=== PATIENT | female | born 1945 | race Caucasian/White ===

== ENCOUNTER 2017-01-28 11:34 | Inpatient (IN) | payer OTHER ==
--- NOTE | 2017-01-28 12:02 | PDOC ---
History of Present Illness - General Chief Complaint: Injury Stated Complaint: FALL Time Seen by Provider: 01/28/17 12:01 - History of Present Illness Initial Comments: 01/28/17 12:39 Ms. Tubbs is a 71 yo female with a significant past medical history of hypothyroidism who presents to the emergency department following a mechanical fall this morning. She reports she was walking down a hill when she tripped and fell, landing on her left side. She reported minimal pain at presentation and declined narcotics. The patient denies chest pain, shortness of breath, headache and dizziness. Denies fever, chills, nausea, vomit, diarrhea and constipation. Denies dysuria, frequency, urgency and hematuria. Allergies: Seasonal Past surgical history: Denies Social history: Denies Past History - Past Medical History Allergies/Adverse Reactions: Allergies Allergy/AdvReac Type Severity Reaction Status Date / Time No Known Allergies Allergy Verified 01/28/17 14:41 Home Medications: Ambulatory Orders Aspirin [ASA -] 81 mg PO DAILY 01/28/17 Levothyroxine [Synthroid -] 50 mcg PO DAILY 01/28/17 Rosuvastatin Calcium [Crestor] 20 mg PO HS 01/28/17 Hypercholesterolemia: Yes Thyroid Disease: Yes (HYPO) - Suicide/Smoking/Psychosocial Hx Smoking History: Never smoked Have you smoked in the past 12 months: No Information on smoking cessation initiated: No Hx Alcohol Use: No Drug/Substance Use Hx: No Substance Use Type: None Review of Systems - Review of Systems Comments:: 01/28/17 12:39 GENERAL/CONSTITUTIONAL: No fever or chills. No weakness. HEAD, EYES, EARS, NOSE AND THROAT: No change in vision. No ear pain or discharge. No sore throat. CARDIOVASCULAR: No chest pain or shortness of breath RESPIRATORY: No cough, wheezing, or hemoptysis. GASTROINTESTINAL: No nausea, vomiting, diarrhea or constipation. GENITOURINARY: No dysuria, frequency, or change in urination. MUSCULOSKELETAL: +Left mid leg pain reported. No neck or back pain. SKIN: No rash NEUROLOGIC: No headache, vertigo, loss of consciousness, or change in strength/ sensation. ENDOCRINE: No increased thirst. No abnormal weight change HEMATOLOGIC/LYMPHATIC: No anemia, easy bleeding, or history of blood clots. ALLERGIC/IMMUNOLOGIC: No hives or skin allergy. *Physical Exam - Vital Signs Last Vital Signs Temp Pulse Resp BP Pulse Ox 98.1 F 70 17 150/95 97 01/28/17 11:50 01/28/17 11:50 01/28/17 11:50 01/28/17 11:50 01/28/17 11:50 - Physical Exam Comments: 01/28/17 12:39 GENERAL: Awake, alert, and fully oriented, in no acute distress HEAD: No signs of trauma, normocephalic, atraumatic EYES: PERRLA, EOMI, sclera anicteric, conjunctiva clear ENT: Auricles normal inspection, hearing grossly normal, nares patent, oropharynx clear without exudates. Moist mucosa NECK: Normal ROM, supple, no lymphadenopathy, JVD, or masses LUNGS: No distress, speaks full sentences, clear to auscultation bilaterally HEART: Regular rate and rhythm, normal S1 and S2, no murmurs, rubs or gallops, peripheral pulses normal and equal bilaterally. ABDOMEN: Soft, nontender, normoactive bowel sounds. No guarding, no rebound. No masses EXTREMITIES: +Left extremity shorter than Right without abnormal rotation. Decrease in Left plantar flexion strength noted. Some swelling on left femur appreciated. No clubbing or cyanosis. NEUROLOGICAL: Cranial nerves II through XII grossly intact. Normal speech, normal gait, no focal sensorimotor deficits SKIN: Warm, Dry, normal turgor, no rashes or lesions noted. ED Treatment Course - LABORATORY CBC & Chemistry Diagram: 01/28/17 12:56 01/28/17 13:40 Medical Decision Making - Medical Decision Making 01/28/17 14:06 90% displaced femur fracture noted on x-ray. Ortho consulted [id number]. 01/28/17 14:46 Ortho spoken to, aware of patient. They will not do surgery today but will see the patient later this afternoon. Will admit patient for overnight care. *DC/Admit/Observation/Transfer Diagnosis at time of Disposition: Femur fracture, left Qualifiers: Encounter type: initial encounter Femur location: shaft Fracture type: closed Fracture morphology: unspecified fracture morphology Qualified Code(s): S72.302A - Unspecified fracture of shaft of left femur, initial encounter for closed fracture - Discharge Dispostion Admit: Yes - Referrals Referrals: Horacio Sheppard MD [Primary Care Provider] -
[2017-01-28] MEDS ORDERED: ONDANSETRON 4 MG/2 ML VIAL IVPUSH ONE (12:31)
[2017-01-28] MEDS ORDERED: morphine CARPU-JECT 2 MG/1 ML DISP.SYRIN IVPUSH ONE (12:31)
[2017-01-28] MEDS ORDERED: morphine CARPU-JECT 4 MG/1 ML DISP.SYRIN IVPUSH ONE (13:52)
[2017-01-28 14:13] LABS: BASOPHIL 0.3 % (0-2.0); EOSINOPHIL 0.5 % (0-4.5); MCH 30.8 pg (25.7-33.7); MCHC 33.4 g/dl (32.0-36.0); MEAN CELL VOLUME 92.3 fl (80-96); MEAN PLT VOLUME 10.5 fl (7.5-11.1); NEUTROPHILS 74.6 % (42.8-82.8); PLATELET COUNT 176 K/MM3 (134-434); RDW 12.8 % (11.6-15.6); WHITE BLOOD COUNT 10.7 K/mm3 (4.0-10.0)
[2017-01-28 14:20] LABS: ANION GAP 8 (8-16); CALCIUM 8.9 mg/dL (8.5-10.1); CO2 28 mmol/L (21-32); CREATININE 0.6 mg/dL (0.55-1.02); GLUCOSE,RANDOM 112 mg/dL (74-106)
[2017-01-28] MEDS ORDERED: HYDROmorphone HCL CARPU-JECT 1 MG/1 ML DISP.SYRIN IVPB ONE (16:28)
[2017-01-28] MEDS ORDERED: HYDROmorphone HCL CARPU-JECT 1 MG/1 ML DISP.SYRIN ONE (16:50)
--- NOTE | 2017-01-28 17:21 | CON.ORTH ---
Consult Reason for Consultation:: left femur fx - Alcohol/Substance Use Hx Alcohol Use: No - Smoking History Smoking history: Never smoked Have you smoked in the past 12 months: No Home Medications - Allergies Allergies/Adverse Reactions: Allergies Allergy/AdvReac Type Severity Reaction Status Date / Time No Known Allergies Allergy Verified 01/28/17 14:41 - Home Medications Home Medications: Ambulatory Orders Aspirin [ASA -] 81 mg PO DAILY 01/28/17 Levothyroxine [Synthroid -] 50 mcg PO DAILY 01/28/17 Rosuvastatin Calcium [Crestor] 20 mg PO HS 01/28/17 Physical Exam for Ortho Vital Signs: Vital Signs Temperature 98.1 F 01/28/17 11:50 Pulse Rate 70 01/28/17 11:50 Respiratory Rate 17 01/28/17 11:50 Blood Pressure 150/95 01/28/17 11:50 O2 Sat by Pulse Oximetry (%) 100 01/28/17 13:25 - Lower Extremity Hip: Yes: Left Leg: Yes: Left, Deformity, Limited ROM, Pain, Swelling, Tenderness, Other (nvi) Imaging - Results X-ray: Report Reviewed, Image Reviewed Assessment/Plan 71 yo female with a significant past medical history of hypothyroidism who presents to the emergency department following a mechanical fall this morning. She reports she was walking down a hill when she tripped and fell, landing on her left side. She reported minimal pain at presentation and declined narcotics. a/p left displaced femoral shaft fx Risks and benefits were d/w pt and family in detail Will need left femur retrograde nail OR for tomorrow afternoon surgical clearance NPO after midnight d/w Dr. Chang
[2017-01-28 17:26] VITALS: BMI 25.5
--- NOTE | 2017-01-28 20:22 | HP ---
Admitting History and Physical - Primary Care Physician PCP: Malorie Balderrama - Admission Chief Complaint: fall History of Present Illness: 71 yo female with a significant past medical history of hypothyroidism who presents to the emergency department following a mechanical fall this morning. She reports she was walking down a hill when she tripped and fell, landing on her left side, did not hit head or loose conciousness.no syncope - Past Medical History Endocrine: Yes: Hypothyroidism - Smoking History Smoking history: Never smoked Have you smoked in the past 12 months: No - Alcohol/Substance Use Hx Alcohol Use: No Home Medications - Allergies Allergies/Adverse Reactions: Allergies Allergy/AdvReac Type Severity Reaction Status Date / Time No Known Allergies Allergy Verified 01/28/17 14:41 - Home Medications Home Medications: Ambulatory Orders Aspirin [ASA -] 81 mg PO DAILY 01/28/17 Levothyroxine [Synthroid -] 50 mcg PO DAILY 01/28/17 Rosuvastatin Calcium [Crestor] 20 mg PO HS 01/28/17 Physical Examination Vital Signs: Vital Signs Temperature 98.1 F 01/28/17 11:50 Pulse Rate 64 01/28/17 17:30 Respiratory Rate 18 01/28/17 17:30 Blood Pressure 136/68 01/28/17 17:30 O2 Sat by Pulse Oximetry (%) 100 01/28/17 17:30 Constitutional: Yes: No Distress HENT: Yes: Atraumatic Neck: Yes: Supple Cardiovascular: Yes: Regular Rate and Rhythm Respiratory: Yes: CTA Bilaterally Gastrointestinal: Yes: Normal Bowel Sounds Extremities: Yes: WNL Edema: No Peripheral Pulses WNL: No Neurological: Yes: Alert, Oriented Imaging - Results Cat Scan: Report Reviewed, Image Reviewed Problem List - Problems (1) Femur fracture, left Assessment/Plan: FOR SURGERY TOMORROW\WILL GET CARDIOLOGY CLEARANCE ECHO Code(s): S72.92XA - UNSP FRACTURE OF LEFT FEMUR, INIT ENCNTR FOR CLOSED FRACTURE Qualifiers: Encounter type: initial encounter Femur location: shaft Fracture type: closed Fracture morphology: unspecified fracture morphology Qualified Code(s): S72.302A - Unspecified fracture of shaft of left femur, initial encounter for closed fracture (2) Fall Assessment/Plan: PT TRIPPED AND FELL NO DIZZINESS Code(s): W19.XXXA - UNSPECIFIED FALL, INITIAL ENCOUNTER Assessment/Plan Laboratory Tests 01/28/17 01/28/17 12:56 13:40 WBC 10.7 H RBC 4.33 Hgb 13.3 Hct 39.9 MCV 92.3 MCH 30.8 MCHC 33.4 RDW 12.8 Plt Count 176 MPV 10.5 Neutrophils % 74.6 Lymphocytes % 18.1 Monocytes % 6.5 Eosinophils % 0.5 Basophils % 0.3 Sodium 140 Potassium 3.9 Chloride 104 Carbon Dioxide 28 Anion Gap 8 BUN 21 H Creatinine 0.6 Random Glucose 112 H Calcium 8.9 Active Medications Generic Name Dose Route Start Last Admin Trade Name Freq PRN Reason Stop Dose Admin Hydromorphone HCl 1 mg 01/28/17 20:30 Dilaudid Injection - IVPB Q3H PRN PAIN Hydromorphone HCl 2 mg 01/28/17 20:31 Dilaudid Injection - IVPB Q4H PRN PAIN
[2017-01-28] MEDS ORDERED: HYDROmorphone HCL CARPU-JECT 1 MG/1 ML DISP.SYRIN IVPB PRN (20:30)
[2017-01-28] MEDS ORDERED: ROSUVASTATIN CA 10 MG TABLET (FP) ONE (21:04)
[2017-01-28] MEDS ORDERED: ROSUVASTATIN CA 20 MG TABLET (FP) PO SCH (22:00)
[2017-01-28] MEDS: HYDROmorphone HCL CARPU-JECT 2 MG/1 ML DISP.SYRIN IVPB PRN (23:42)
[2017-01-29] MEDS: HYDROmorphone HCL CARPU-JECT 2 MG/1 ML DISP.SYRIN IVPB PRN ×3 (04:51→13:37)
[2017-01-29] MEDS ORDERED: LEVOTHYROXINE NA 50 MCG TABLET (FP) PO SCH (07:00)
[2017-01-29 07:12] LABS: BASOPHIL 0.3 % (0-2.0); EOSINOPHIL 0.2 % (0-4.5); MCH 30.9 pg (25.7-33.7); MCHC 33.4 g/dl (32.0-36.0); MEAN CELL VOLUME 92.5 fl (80-96); MEAN PLT VOLUME 10.7 fl (7.5-11.1); NEUTROPHILS 72.2 % (42.8-82.8); PLATELET COUNT 162 K/MM3 (134-434); RDW 12.6 % (11.6-15.6); WHITE BLOOD COUNT 9.5 K/mm3 (4.0-10.0)
[2017-01-29 08:59] LABS: ALBUMIN 3.2 g/dl (3.4-5.0); ANION GAP 7 (8-16); CALCIUM 8.2 mg/dL (8.5-10.1); CO2 25 mmol/L (21-32); CREATININE 0.6 mg/dL (0.55-1.02); GLUCOSE,RANDOM 108 mg/dL (74-106); SGOT/AST 20 U/L (15-37); SGPT/ALT 26 U/L (12-78)
[2017-01-29 09:01] LABS: ALK PHOS 51 U/L (45-117); BILIRUBIN,TOTAL 0.9 mg/dL (0.2-1.0); TOT PROT 6.6 g/dl (6.4-8.2)
--- NOTE | 2017-01-29 09:19 | PN ---
Progress Note (short form) - Note Progress Note: Chief Complaint: Events noted, notes reviewed, complaining of left hip discomfort, denies any chest pain or dyspnea History of Present Illness: Seen and examined. Full consult dictated Echocardiography reviewed at the bedside which revealed normal LV function, MAC , AV sclerosis/calcification with no , no significant valvular regurgitation - Current Medication List Current Medications Hydromorphone HCl (Dilaudid Injection -) 1 mg IVPB Q3H PRN PRN Reason: PAIN Last Admin: 01/28/17 20:41 Dose: 1 mg Hydromorphone HCl (Dilaudid Injection -) 2 mg IVPB Q4H PRN PRN Reason: PAIN Last Admin: 01/29/17 04:51 Dose: 2 mg Levothyroxine Sodium (Synthroid -) 50 mcg PO DAILY@0700 [facility] Last Admin: 01/29/17 06:54 Dose: 50 mcg Rosuvastatin Calcium (Crestor -) 20 mg PO HS [facility] Last Admin: 01/28/17 21:16 Dose: 20 mg Review of Systems - Review of Systems Constitutional: no symptoms reported Respiratory: denies: Cough or Sputum Production Cardiovascular: as noted above Gastrointestinal: denies Nausea, Vomiting, Diarrhea, Constipation or Abdominal Pain Genitourinary: No symptoms reported Musculoskeletal: As noted above Endocrine: No symptoms reported - Objective Vital Signs: Last Vital Signs Temp Pulse Resp BP Pulse Ox 98 F 76 18 106/61 95 01/29/17 09:18 01/29/17 09:18 01/29/17 09:18 01/29/17 09:18 01/28/17 22:00 Intake & Output 01/26/17 01/27/17 01/28/17 01/29/17 23:59 23:59 23:59 23:59 Intake Total 150 0 Balance 150 0 Weight 149 lb Constitutional: No Distress, Calm Neck: Supple Negative JVD Cardiovascular: S1 S2 Regular Rate and Rhythm, Grade 1/6 Systolic Ejection Murmur Respiratory: clear to A&P Gastrointestinal: Soft, Benign Normal Bowel Sounds Ext: No Edema Labs: CBC, BMP 01/29/17 06:10 01/29/17 06:25 Assessment/Plan ASSESSMENT: 1. Pre-operative cardiovascular evaluation, mechanical fall with fracture hip for operative repair 2. Hypercholesterolemia 3. Carotid atherosclerosis, asymptomatic 4. Hypothyroidism 5. Heart murmur related to AV sclerosis, no stenosis PLAN: 1. There are no absolute contraindications in proceeding with planned urgent surgical intervention considering that there is no clinical evidence of ACS and/ or de-compensated congestive heart failure and/or malignant ventricular arrhythmia 2. DVT prophylaxis 3. Continue Crestor 4. Continue ASA unless it is contraindicated Devang Grayson M.D.
--- NOTE | 2017-01-29 13:37 | EKG ---
Test Reason : Blood Pressure : / mmHG Vent. Rate : 074 BPM Atrial Rate : 074 BPM P-R Int : 150 ms QRS Dur : 082 ms QT Int : 428 ms P-R-T Axes : 048 -22 -01 degrees QTc Int : 475 ms NORMAL SINUS RHYTHM NORMAL ECG NO PREVIOUS ECGS AVAILABLE BASELINE ARTIFACT REPEAT EKG IF CLINICALLY INDICATED Confirmed by SOLEDAD RICHARDSON MD ([id number]) on 01/29/2017 1:37:03 PM Referred By: Confirmed By:SOLEDAD RICHARDSON MD
[2017-01-29] MEDS ORDERED: ROPIVACAINE HCL 0.5% 30ML VIAL ONE (14:44)
[2017-01-29] MEDS ORDERED: BUPIVACAINE HCL/PF 0.5% (5MG/ML) 10 ML VIAL ONE (14:44)
[2017-01-29] MEDS ORDERED: DEXAMETHASONE SOD PHOSPHATE/PF 10 MG/ML SDV ONE (14:44)
[2017-01-29] MEDS ORDERED: MIDAZOLAM HCL 2 MG/2 ML SINGLE DOSE VIAL ONE (14:45)
--- NOTE | 2017-01-29 14:56 | CONS ---
DATE OF CONSULTATION: DATE OF DICTATION: 01/29/2017 REQUESTING PHYSICIAN: Malorie Balderrama MD CHIEF COMPLAINT: Fall, left hip fracture, preoperative cardiovascular evaluation. HISTORY OF PRESENT ILLNESS: A 71-year-old female with known history of hypercholesterolemia on statin therapy; carotid atherosclerosis, asymptomatic; hypothyroidism; who denied any history of hypertension, diabetes mellitus; who presented to [facility] after sustaining a mechanical fall with left hip trauma and was noted to have evidence of a fracture; for which, surgical intervention is planned later today. Patient denied any syncope prior to the above event. Patient does not report any prior history of coronary artery disease, angina pectoris, or congestive heart failure. Patient denies any chest discomfort. Patient denies any dyspnea, orthopnea, paroxysmal nocturnal dyspnea, or peripheral edema. Patient denies any palpitations, dizziness, lightheadedness, or syncope. PAST MEDICAL HISTORY: Hypercholesterolemia; carotid atherosclerosis, asymptomatic; hypothyroidism. SOCIAL HISTORY: Nonsmoker. FAMILY HISTORY: Positive coronary artery disease. ALLERGIES: None reported. MEDICAL THERAPY AT HOME: Included Crestor 20 mg once a day, Ecotrin 81 mg once a day, Synthroid 50 mcg once a day. REVIEW OF SYSTEMS: Head and Neck: Denies headache, photophobia, or blurring of vision. Respiratory: No cough or sputum production. Cardiovascular: As noted above. Gastrointestinal: Denies nausea, vomiting, diarrhea, abdominal discomfort. Genitourinary: No symptoms reported. Musculoskeletal: Left hip discomfort. PHYSICAL EXAMINATION: Vital Signs: Blood pressure is 106/61 mmHg, pulse rate of 76 beats per minute. Head and Neck: Pupils equal and reactive to light and accommodation. Extraocular muscles are intact. Anicteric sclerae. Negative JVD. No bruit appreciated. Chest: Clear to auscultation and percussion. Cardiovascular: S1, S2. Regular. Grade 1/6 systolic ejection murmur. No clicks or gallops. Abdomen: Soft, benign. Normoactive bowel sounds. Extremities: Negative edema. Intact distal pulses. No calf tenderness. DIAGNOSTIC DATA: Electrocardiogram reveals baseline artifact, sinus rhythm, with nonspecific T-wave abnormality. No prior EKG available for comparison. Chest x-ray report was noted. No acute pathology noted. CBC revealed white cell count of 9.5, hemoglobin 12.3, platelet count 162. Basic metabolic profile revealed sodium 139, potassium 4.2, BUN 21, creatinine 0.6, glucose 108, with normal liver profile. ASSESSMENT: 1. Preoperative cardiovascular evaluation prior to proceeding with left hip operative intervention, post mechanical fall, fracture of hip. 2. History of hypercholesterolemia. 3. History of carotid atherosclerosis, asymptomatic. 4. Hypothyroidism. 5. Heart murmur related to aortic valve sclerosis, with no evidence of aortic valve stenosis. RECOMMENDATION: 1. There are no absolute contraindications in proceeding with the above planned urgent surgical intervention considering that there is no clinical evidence of acute coronary syndrome and/or decompensated congestive heart failure and/or malignant ventricular arrhythmia. 2. DVT prophylaxis. 3. Continuation of Crestor therapy. 4. Continuation of aspirin therapy unless it is absolutely contraindicated. Thank you for the kind referral. REJI ALBA M.D. [id number]
[2017-01-29] MEDS ORDERED: LACTATED RINGERS SOLUTION 1,000 ML IV SCH (15:00)
[2017-01-29] MEDS ORDERED: ePHEDrine SULFATE 50 MG/1 ML AMPULE ONE (15:38)
[2017-01-29] MEDS ORDERED: ceFAZolin SODIUM 1 GM VIAL IVPB ONE ×2 (15:50)
[2017-01-29] MEDS ORDERED: DEXAMETHASONE SOD PHOSPHATE 4 MG/1 ML VIAL ONE (15:54)
[2017-01-29] MEDS ORDERED: ceFAZolin SODIUM 1 GM VIAL ONE ×2 (15:54→22:02)
[2017-01-29] MEDS ORDERED: PHENYLEPHRINE HCL 10 MG/1 ML SINGLE DOSE VIAL ONE (15:54)
[2017-01-29] MEDS ORDERED: PROPOFOL 20 ML ONE (15:55)
--- NOTE | 2017-01-29 16:45 | PN ---
Progress Note, Physician History of Present Illness: for OR today - Current Medication List Current Medications: Active Medications Enoxaparin Sodium (Lovenox -) 40 mg SQ DAILY [facility] Hydromorphone HCl (Dilaudid Injection -) 1 mg IVPB Q3H PRN PRN Reason: PAIN Last Admin: 01/28/17 20:41 Dose: 1 mg Hydromorphone HCl (Dilaudid Injection -) 2 mg IVPB Q4H PRN PRN Reason: PAIN Last Admin: 01/29/17 13:37 Dose: 2 mg Cefazolin Sodium (Ancef 1 Gm Premixed Ivpb -) 50 mls @ 100 mls/hr IVPB Q8H [facility] Stop: 01/30/17 07:29 Lactated Ringer's (Lactated Ringers Solution) 1,000 mls @ 75 mls/hr IV ASDIR [facility] Levothyroxine Sodium (Synthroid -) 50 mcg PO DAILY@0700 [facility] Last Admin: 01/29/17 06:54 Dose: 50 mcg Rosuvastatin Calcium (Crestor -) 20 mg PO HS [facility] Last Admin: 01/28/17 21:16 Dose: 20 mg - Objective Vital Signs: Vital Signs Temperature 98.2 F 01/29/17 13:43 Pulse Rate 72 01/29/17 13:43 Respiratory Rate 20 01/29/17 13:43 Blood Pressure 116/73 01/29/17 13:43 O2 Sat by Pulse Oximetry (%) 95 01/29/17 09:00 Constitutional: Yes: No Distress HENT: Yes: Atraumatic Neck: Yes: Supple Cardiovascular: Yes: Regular Rate and Rhythm Respiratory: Yes: CTA Bilaterally Gastrointestinal: Yes: Normal Bowel Sounds Extremities: Yes: Other (llex mild rotated) Edema: No Peripheral Pulses WNL: Yes Neurological: Yes: Alert, Oriented Labs: CBC, BMP 01/29/17 06:10 01/29/17 06:25 Problem List - Problems (1) Femur fracture, left Assessment/Plan: FOR SURGERY Code(s): S72.92XA - UNSP FRACTURE OF LEFT FEMUR, INIT ENCNTR FOR CLOSED FRACTURE Qualifiers: Encounter type: initial encounter Femur location: shaft Fracture type: closed Fracture morphology: unspecified fracture morphology Qualified Code(s): S72.302A - Unspecified fracture of shaft of left femur, initial encounter for closed fracture (2) Fall Code(s): W19.XXXA - UNSPECIFIED FALL, INITIAL ENCOUNTER
--- NOTE | 2017-01-29 17:37 | OP ---
Operative Note - Note: Operative Date: 01/29/17 Pre-Operative Diagnosis: left distal femoral shaft fracture Operation: retrograde left femoral nail Post-Operative Diagnosis: Same as Pre-op Surgeon: Daryl Chang Anesthesia: Spinal Estimated Blood Loss (mls): 150 Operative Report Dictated: Yes
[2017-01-29] MEDS ORDERED: ONDANSETRON 4 MG/2 ML VIAL IVPUSH PRN (17:43)
[2017-01-29] MEDS ORDERED: HYDROmorphone HCL CARPU-JECT 2 MG/1 ML DISP.SYRIN IVPB PRN (18:19)
[2017-01-29] MEDS: LACTATED RINGERS SOLUTION 1,000 ML IV SCH (20:13)
[2017-01-29] MEDS ORDERED: ROSUVASTATIN CA 10 MG TABLET (FP) ONE (22:01)
[2017-01-29] MEDS ORDERED: DEXTROSE 5%-WATER - 50 ML IVPB ONE (22:02)
[2017-01-29] MEDS: HYDROmorphone HCL CARPU-JECT 1 MG/1 ML DISP.SYRIN IVPB PRN (22:12)
[2017-01-29] MEDS: ROSUVASTATIN CA 20 MG TABLET (FP) PO SCH (22:13)
[2017-01-29] MEDS ORDERED: CEFAZOLIN 1 GM/D5W 50 ML IVPB SCH (23:00)
[2017-01-29] MEDS ORDERED: CEFAZOLIN 1 GM in DEXTROSE 5%-WATER - 50 ML IVPB SCH (23:00)
[2017-01-29] MEDS: ACETAMINOPHEN 325 MG TABLET (FP) PO SCH (23:31)
[2017-01-30] MEDS: HYDROmorphone HCL CARPU-JECT 1 MG/1 ML DISP.SYRIN IVPB PRN ×2 (03:30→09:48)
[2017-01-30] MEDS: ACETAMINOPHEN 325 MG TABLET (FP) PO SCH ×5 (03:35→18:15)
[2017-01-30] MEDS ORDERED: DEXTROSE 5%-WATER - 50 ML IVPB ONE (05:32)
[2017-01-30] MEDS ORDERED: ceFAZolin SODIUM 1 GM VIAL ONE (05:32)
[2017-01-30] MEDS: LEVOTHYROXINE NA 50 MCG TABLET (FP) PO SCH (06:02)
[2017-01-30] MEDS ORDERED: CEFAZOLIN 1 GM in DEXTROSE 5%-WATER - 50 ML IVPB ONE (07:00)
[2017-01-30 08:07] LABS: MCH 30.5 pg (25.7-33.7); MCHC 32.7 g/dl (32.0-36.0); MEAN CELL VOLUME 93.3 fl (80-96); MEAN PLT VOLUME 11.4 fl (7.5-11.1); PLATELET COUNT 129 K/MM3 (134-434); RDW 12.5 % (11.6-15.6); WHITE BLOOD COUNT 11.1 K/mm3 (4.0-10.0)
--- NOTE | 2017-01-30 08:42 | OP ---
DATE OF OPERATION: 01/29/2017 PREOPERATIVE DIAGNOSIS: Left distal femoral shaft fracture. POSTOPERATIVE DIAGNOSIS: Left distal femoral shaft fracture. PROCEDURE: Retrograde nailing, left femoral shaft fracture. SURGICAL ATTENDING: Daryl Chang MD ANESTHESIA: Spinal and regional. CLOSURE: A retrograde femoral nail 10 x 340 mm long, 0 Vicryl fascia, 2-0 subcutaneous, marco for skin. ESTIMATED BLOOD LOSS: Approximately 150 mL. COMPLICATIONS: None. CONDITION: To recovery room in stable condition. DESCRIPTION OF THE PROCEDURE: The patient was taken to the operating room on January 29, 2017. Spinal and regional anesthesia were administered by the anesthesiologist. IV Kefzol was given prophylactically prior to the case. The patient was prepped and draped in the usual sterile fashion on a regular table with extension at the end of the table. A 6-cm longitudinal incision just medial to the patellar tendon was incised, hemostasis achieved with Bovie cautery. Sharp dissection was carried just medial to the tendon, making an arthrotomy into the knee joint. A guidewire was drilled from the distal femoral notch just above the insertions of the PCL into the intermedullary canal. Proper placement was confirmed in AP and lateral plane by using the image intensifier. This was overreamed with a starter reamer using a tissue protector to protect the surrounding soft tissues. Using a reduction device and ball-tip guidewire with a curve, the guidewire was advanced up the femoral canal past the fracture, into the proximal femoral shaft all the way up to above the lesser trochanter. Intermedullary canal was removed up to 11.5 reamer, then the guidewire was measured for length. A 10 x 340-mm intramedullary retrograde [place] femoral nail was malleted down into place. It was malleted to ensure that it was beneath the articular surface distally and reached up to the area of the lesser trochanter proximally. Anatomic reduction with good interdigitation of the fracture was obtained. Three distal locking screws were then placed lateral to medial using the outrigger through small stab incision. They were drilled. Depth gauge was then screwed to the appropriate length screws, achieving excellent fixation. The outrigger was removed. The impacter was used to further compress the fracture. Two proximal anterior to posterior locking screws were placed using the freehand technique through small stab incision and blunt dissection down to the femoral shaft. They were drilled. Depth gauge was then screwed with the appropriate size screws. Anatomic reduction of the fracture with excellent position of hardware was confirmed in the AP and lateral plane by using the image intensifier. The outrigger was removed. The knee was thoroughly irrigated with antibiotic irrigation. The fascia was closed using No. 1 Vicryl, 2-0 subcutaneous and marco to skin as well as marco for the locking screw sites. Sterile pressure dressing was applied. Patient awakened from anesthesia and transferred to recovery in stable condition. No complications. Estimated blood loss approximately 150 mL. Trace [id number]
[2017-01-30 08:44] LABS: ANION GAP 5 (8-16); CO2 29 mmol/L (21-32); CREATININE 0.5 mg/dL (0.55-1.02); GLUCOSE,RANDOM 123 mg/dL (74-106)
[2017-01-30] MEDS: ENOXAPARIN NA (PORCINE) 40 MG/0.4 ML DISP.SYRIN SQ SCH (09:48)
[2017-01-30] MEDS ORDERED: ENOXAPARIN NA (PORCINE) 40 MG/0.4 ML DISP.SYRIN SQ SCH (10:00)
--- NOTE | 2017-01-30 10:27 | PN ---
Progress Note (short form) - Note Progress Note: Ortho Pt seen and examined s/p left femur IM getachew pod #1 Selected Entries 01/30/17 06:00 Temperature 97.4 F L Pulse Rate 68 Respiratory 18 Rate Blood Pressure 102/61 Laboratory Tests 01/30/17 06:30 WBC 11.1 H Hgb 10.6 L D Hct 32.3 L Plt Count 129 L D dressing slightly saturated, + swelling, calf soft, nt nvi a/p dressing changed PT, PWb dvt ppx pain control d/c planning
[2017-01-30] MEDS: oxyCODONE HCL 5 MG TABLET PO PRN ×2 (13:30→21:13)
--- NOTE | 2017-01-30 14:31 | PN ---
Progress Note (short form) - Note Progress Note: Anesthesia POD#1 S/P left Femur intermedullry getachew with Spinal anesthesia. VSS,no N/V,pain is under control. Strength is back. Criss Rdz MD.
--- NOTE | 2017-01-30 15:54 | PN ---
Progress Note, Physician History of Present Illness: Post left hip repair, no chest pain or dyspnea. - Current Medication List Current Medications: Active Medications Acetaminophen (Tylenol -) 650 mg PO Q6H COUNTS INCLUDE 234 BEDS AT THE [facility] Stop: 02/01/17 17:44 Last Admin: 01/30/17 13:31 Dose: 650 mg Enoxaparin Sodium (Lovenox -) 40 mg SQ DAILY COUNTS INCLUDE 234 BEDS AT THE [facility] Last Admin: 01/30/17 09:48 Dose: 40 mg Hydromorphone HCl (Dilaudid Injection -) 1 mg IVPB Q3H PRN PRN Reason: PAIN Last Admin: 01/30/17 09:48 Dose: 1 mg Hydromorphone HCl (Dilaudid Injection -) 2 mg IVPB Q4H PRN PRN Reason: PAIN Lactated Ringer's (Lactated Ringers Solution) 1,000 mls @ 75 mls/hr IV ASDIR COUNTS INCLUDE 234 BEDS AT THE [facility] Last Admin: 01/29/17 20:13 Dose: 75 mls/hr Levothyroxine Sodium (Synthroid -) 50 mcg PO DAILY@0700 COUNTS INCLUDE 234 BEDS AT THE [facility] Last Admin: 01/30/17 06:02 Dose: 50 mcg Oxycodone HCl (Roxicodone -) 5 mg PO Q3H PRN PRN Reason: PAIN LEVEL 1-5 Last Admin: 01/30/17 13:30 Dose: 5 mg Oxycodone HCl (Roxicodone -) 10 mg PO Q3H PRN PRN Reason: PAIN LEVEL 6-10 Rosuvastatin Calcium (Crestor -) 20 mg PO HS COUNTS INCLUDE 234 BEDS AT THE [facility] Last Admin: 01/29/17 22:13 Dose: Not Given - Objective Vital Signs: Vital Signs Temperature 97.6 F 01/30/17 14:00 Pulse Rate 71 01/30/17 14:00 Respiratory Rate 21 01/30/17 14:00 Blood Pressure 117/64 01/30/17 14:00 O2 Sat by Pulse Oximetry (%) 96 01/30/17 08:00 Constitutional: Yes: No Distress, Calm Neck: Yes: Supple Cardiovascular: Yes: Regular Rate and Rhythm Respiratory: Yes: Regular, CTA Bilaterally Gastrointestinal: Yes: Normal Bowel Sounds, Soft Edema: No Labs: CBC, BMP 01/30/17 06:30 01/30/17 06:30 Problem List - Problems (1) Femur fracture, left Code(s): S72.92XA - UNSP FRACTURE OF LEFT FEMUR, INIT ENCNTR FOR CLOSED FRACTURE Qualifiers: Encounter type: initial encounter Femur location: shaft Fracture type: closed Fracture morphology: unspecified fracture morphology Qualified Code(s): S72.302A - Unspecified fracture of shaft of left femur, initial encounter for closed fracture (2) Hyperlipidemia Code(s): E78.5 - HYPERLIPIDEMIA, UNSPECIFIED Qualifiers: Hyperlipidemia type: pure hypercholesterolemia Qualified Code(s): E78.00 - Pure hypercholesterolemia, unspecified; E78.0 - Pure hypercholesterolemia (3) Hypothyroidism Code(s): E03.9 - HYPOTHYROIDISM, UNSPECIFIED Qualifiers: Hypothyroidism type: unspecified Qualified Code(s): E03.9 - Hypothyroidism, unspecified Assessment/Plan 1. Left distal femoral shaft fracture POD#1 left femoral IM nail stable CV-villavicencio 2. Hypercholesterolemia 3. Carotid atherosclerosis, asymptomatic 4. Hypothyroidism 5. Heart murmur related to AV sclerosis, no stenosis PLAN: 1. Analgesia as needed, PT as tolerated 2. DVT prophylaxis 3. Continue Crestor 20 qhs 4. Continue ASA unless it is contraindicated
--- NOTE | 2017-01-30 17:16 | PN ---
Progress Note, Physician History of Present Illness: s/p surgery pod 1 - Current Medication List Current Medications: Active Medications Acetaminophen (Tylenol -) 650 mg PO Q6H [facility] Stop: 02/01/17 17:44 Last Admin: 01/30/17 13:31 Dose: 650 mg Enoxaparin Sodium (Lovenox -) 40 mg SQ DAILY [facility] Last Admin: 01/30/17 09:48 Dose: 40 mg Hydromorphone HCl (Dilaudid Injection -) 1 mg IVPB Q3H PRN PRN Reason: PAIN Last Admin: 01/30/17 09:48 Dose: 1 mg Hydromorphone HCl (Dilaudid Injection -) 2 mg IVPB Q4H PRN PRN Reason: PAIN Lactated Ringer's (Lactated Ringers Solution) 1,000 mls @ 75 mls/hr IV ASDIR [facility] Last Admin: 01/29/17 20:13 Dose: 75 mls/hr Levothyroxine Sodium (Synthroid -) 50 mcg PO DAILY@0700 [facility] Last Admin: 01/30/17 06:02 Dose: 50 mcg Oxycodone HCl (Roxicodone -) 5 mg PO Q3H PRN PRN Reason: PAIN LEVEL 1-5 Last Admin: 01/30/17 13:30 Dose: 5 mg Oxycodone HCl (Roxicodone -) 10 mg PO Q3H PRN PRN Reason: PAIN LEVEL 6-10 Rosuvastatin Calcium (Crestor -) 20 mg PO HS [facility] Last Admin: 01/29/17 22:13 Dose: Not Given - Objective Vital Signs: Vital Signs Temperature 97.6 F 01/30/17 14:00 Pulse Rate 71 01/30/17 14:00 Respiratory Rate 21 01/30/17 14:00 Blood Pressure 117/64 01/30/17 14:00 O2 Sat by Pulse Oximetry (%) 96 01/30/17 08:00 Constitutional: Yes: No Distress HENT: Yes: Atraumatic Neck: Yes: Supple Cardiovascular: Yes: Regular Rate and Rhythm Respiratory: Yes: CTA Bilaterally Gastrointestinal: Yes: Normal Bowel Sounds Extremities: Yes: Other (llex surgery) Neurological: Yes: Alert, Oriented Labs: CBC, BMP 01/30/17 06:30 01/30/17 06:30 Problem List - Problems (1) Femur fracture, left Assessment/Plan: s/p surgery rehab placement PT Code(s): S72.92XA - UNSP FRACTURE OF LEFT FEMUR, INIT ENCNTR FOR CLOSED FRACTURE Qualifiers: Encounter type: initial encounter Femur location: shaft Fracture type: closed Fracture morphology: unspecified fracture morphology Qualified Code(s): S72.302A - Unspecified fracture of shaft of left femur, initial encounter for closed fracture (2) Fall Code(s): W19.XXXA - UNSPECIFIED FALL, INITIAL ENCOUNTER
--- NOTE | 2017-01-30 17:18 | DS ---
Physical Examination Vital Signs: Vital Signs Temperature 97.6 F 01/30/17 14:00 Pulse Rate 71 01/30/17 14:00 Respiratory Rate 21 01/30/17 14:00 Blood Pressure 117/64 01/30/17 14:00 O2 Sat by Pulse Oximetry (%) 96 01/30/17 08:00 Labs: CBC, BMP 01/30/17 06:30 01/30/17 06:30 Discharge Summary Reason For Visit: FRACTURE OF LEFT FEMUR Current Active Problems Fall (Acute) Femur fracture, left (Acute) Hyperlipidemia (Acute) Hypothyroidism (Acute) - Instructions Referrals: Horacio Sheppard MD [Primary Care Provider] - - Home Medications Comprehensive Discharge Medication List: Ambulatory Orders Aspirin [ASA -] 81 mg PO DAILY 01/28/17 Levothyroxine [Synthroid -] 50 mcg PO DAILY 01/28/17 Rosuvastatin Calcium [Crestor] 20 mg PO HS 01/28/17 Enoxaparin [Lovenox -] 40 mg SQ DAILY #7 mg 01/30/17 dc to snf
[2017-01-30] MEDS: LACTATED RINGERS SOLUTION 1,000 ML IV SCH (18:15)
[2017-01-30] MEDS ORDERED: ROSUVASTATIN CA 10 MG TABLET (FP) ONE (21:11)
[2017-01-30] MEDS: ROSUVASTATIN CA 20 MG TABLET (FP) PO SCH (21:16)
[2017-01-31] MEDS: ACETAMINOPHEN 325 MG TABLET (FP) PO SCH ×4 (01:01→17:03)
[2017-01-31] MEDS: oxyCODONE HCL 5 MG TABLET PO PRN ×2 (02:58→09:36)
[2017-01-31] MEDS: LEVOTHYROXINE NA 50 MCG TABLET (FP) PO SCH (06:05)
[2017-01-31 08:30] LABS: MCH 30.6 pg (25.7-33.7); MCHC 33.5 g/dl (32.0-36.0); MEAN CELL VOLUME 91.4 fl (80-96); MEAN PLT VOLUME 10.3 fl (7.5-11.1); PLATELET COUNT 130 K/MM3 (134-434); RDW 12.7 % (11.6-15.6); WHITE BLOOD COUNT 11.9 K/mm3 (4.0-10.0)
[2017-01-31] MEDS: ENOXAPARIN NA (PORCINE) 40 MG/0.4 ML DISP.SYRIN SQ SCH (09:36)
--- NOTE | 2017-01-31 11:40 | PN ---
Progress Note, Physician History of Present Illness: Post left hip repair, no chest pain or dyspnea, now reports right ankle discomfort, xrays negative, has FROM. - Current Medication List Current Medications: Active Medications Acetaminophen (Tylenol -) 650 mg PO Q6H [facility] Stop: 02/01/17 17:44 Last Admin: 01/31/17 05:37 Dose: 650 mg Enoxaparin Sodium (Lovenox -) 40 mg SQ DAILY [facility] Last Admin: 01/31/17 09:36 Dose: 40 mg Hydromorphone HCl (Dilaudid Injection -) 1 mg IVPB Q3H PRN PRN Reason: PAIN Last Admin: 01/30/17 09:48 Dose: 1 mg Hydromorphone HCl (Dilaudid Injection -) 2 mg IVPB Q4H PRN PRN Reason: PAIN Lactated Ringer's (Lactated Ringers Solution) 1,000 mls @ 75 mls/hr IV ASDIR [facility] Last Admin: 01/30/17 18:15 Dose: Not Given Levothyroxine Sodium (Synthroid -) 50 mcg PO DAILY@0700 [facility] Last Admin: 01/31/17 06:05 Dose: 50 mcg Oxycodone HCl (Roxicodone -) 5 mg PO Q3H PRN PRN Reason: PAIN LEVEL 1-5 Last Admin: 01/30/17 21:13 Dose: 5 mg Oxycodone HCl (Roxicodone -) 10 mg PO Q3H PRN PRN Reason: PAIN LEVEL 6-10 Last Admin: 01/31/17 09:36 Dose: 10 mg Rosuvastatin Calcium (Crestor -) 20 mg PO [facility] Last Admin: 01/30/17 21:16 Dose: 20 mg - Objective Vital Signs: Vital Signs Temperature 98.3 F 01/31/17 11:28 Pulse Rate 80 01/31/17 08:00 Respiratory Rate 18 01/31/17 08:00 Blood Pressure 110/80 01/31/17 08:00 O2 Sat by Pulse Oximetry (%) 97 01/31/17 09:00 Constitutional: Yes: No Distress, Calm Neck: Yes: Supple Cardiovascular: Yes: Regular Rate and Rhythm, Murmur (1/6 SM) Respiratory: Yes: Regular, CTA Bilaterally Gastrointestinal: Yes: Normal Bowel Sounds, Soft Edema: No Labs: CBC, BMP 01/31/17 06:45 01/30/17 06:30 Problem List - Problems (1) Femur fracture, left Code(s): S72.92XA - UNSP FRACTURE OF LEFT FEMUR, INIT ENCNTR FOR CLOSED FRACTURE Qualifiers: Encounter type: initial encounter Femur location: shaft Fracture type: closed Fracture morphology: unspecified fracture morphology Qualified Code(s): S72.302A - Unspecified fracture of shaft of left femur, initial encounter for closed fracture (2) Hyperlipidemia Code(s): E78.5 - HYPERLIPIDEMIA, UNSPECIFIED Qualifiers: Hyperlipidemia type: pure hypercholesterolemia Qualified Code(s): E78.00 - Pure hypercholesterolemia, unspecified; E78.0 - Pure hypercholesterolemia (3) Hypothyroidism Code(s): E03.9 - HYPOTHYROIDISM, UNSPECIFIED Qualifiers: Hypothyroidism type: unspecified Qualified Code(s): E03.9 - Hypothyroidism, unspecified Assessment/Plan 1. Left distal femoral shaft fracture POD#2 left femoral IM nail stable CV-villavicencio 2. Hypercholesterolemia 3. Carotid atherosclerosis, asymptomatic 4. Hypothyroidism 5. Heart murmur related to AV sclerosis, no stenosis PLAN: 1. Analgesia as needed, PT as tolerated 2. DVT prophylaxis 3. Continue Crestor 20 qhs 4. Continue ASA unless it is contraindicated
[2017-01-31] MEDS: HYDROmorphone HCL CARPU-JECT 1 MG/1 ML DISP.SYRIN IVPB PRN ×2 (12:45→21:15)
[2017-01-31] MEDS: POLYETHYLENE GLYCOL 3350 119 GM BTL PO SCH (12:53)
[2017-01-31] MEDS: BACITRACIN 15 GM TUBE TOPICAL OINTMENT TP SCH (12:57)
--- NOTE | 2017-01-31 17:07 | PN ---
Progress Note, Physician History of Present Illness: c/o pain - Current Medication List Current Medications: Active Medications Acetaminophen (Tylenol -) 650 mg PO Q6H [facility] Stop: 02/01/17 17:44 Last Admin: 01/31/17 11:37 Dose: 650 mg Bacitracin (Bacitracin -) 1 applic TP DAILY [facility] Last Admin: 01/31/17 12:57 Dose: 1 applic Docusate Sodium (Colace -) 300 mg PO BID [facility] Enoxaparin Sodium (Lovenox -) 40 mg SQ DAILY [facility] Last Admin: 01/31/17 09:36 Dose: 40 mg Hydromorphone HCl (Dilaudid Injection -) 1 mg IVPB Q3H PRN PRN Reason: PAIN Last Admin: 01/31/17 12:45 Dose: 1 mg Hydromorphone HCl (Dilaudid Injection -) 2 mg IVPB Q4H PRN PRN Reason: PAIN Lactated Ringer's (Lactated Ringers Solution) 1,000 mls @ 75 mls/hr IV ASDIR [facility] Last Admin: 01/30/17 18:15 Dose: Not Given Levothyroxine Sodium (Synthroid -) 50 mcg PO DAILY@0700 [facility] Last Admin: 01/31/17 06:05 Dose: 50 mcg Oxycodone HCl (Roxicodone -) 5 mg PO Q3H PRN PRN Reason: PAIN LEVEL 1-5 Last Admin: 01/30/17 21:13 Dose: 5 mg Oxycodone HCl (Roxicodone -) 10 mg PO Q3H PRN PRN Reason: PAIN LEVEL 6-10 Last Admin: 01/31/17 09:36 Dose: 10 mg Polyethylene Glycol (Miralax (For Daily Use) -) 17 gm PO DAILY [facility] Last Admin: 01/31/17 12:53 Dose: 17 gm Rosuvastatin Calcium (Crestor -) 20 mg PO HS [facility] Last Admin: 01/30/17 21:16 Dose: 20 mg - Objective Vital Signs: Vital Signs Temperature 98.0 F 01/31/17 14:00 Pulse Rate 76 01/31/17 14:00 Respiratory Rate 17 01/31/17 14:00 Blood Pressure 96/63 01/31/17 14:00 O2 Sat by Pulse Oximetry (%) 97 01/31/17 09:00 Constitutional: Yes: No Distress HENT: Yes: Atraumatic Neck: Yes: Supple Cardiovascular: Yes: Regular Rate and Rhythm Respiratory: Yes: CTA Bilaterally Gastrointestinal: Yes: Normal Bowel Sounds Extremities: Yes: Other (lle in wrap) Neurological: Yes: Alert, Oriented Labs: CBC, BMP 01/31/17 06:45 01/30/17 06:30 Problem List - Problems (1) Femur fracture, left Assessment/Plan: s/p surgery rehab placement PT Code(s): S72.92XA - UNSP FRACTURE OF LEFT FEMUR, INIT ENCNTR FOR CLOSED FRACTURE Qualifiers: Encounter type: initial encounter Femur location: shaft Fracture type: closed Fracture morphology: unspecified fracture morphology Qualified Code(s): S72.302A - Unspecified fracture of shaft of left femur, initial encounter for closed fracture (2) Fall Assessment/Plan: PT TRIPPED AND FELL NO DIZZINESS Code(s): W19.XXXA - UNSPECIFIED FALL, INITIAL ENCOUNTER
[2017-01-31] MEDS ORDERED: ROSUVASTATIN CA 10 MG TABLET (FP) ONE (21:08)
[2017-01-31] MEDS: DOCUSATE SODIUM 100 MG CAPSULE (FP) PO SCH (21:15)
[2017-01-31] MEDS: ROSUVASTATIN CA 20 MG TABLET (FP) PO SCH (21:16)
[2017-01-31] MEDS: LACTATED RINGERS SOLUTION 1,000 ML IV SCH (23:55)
[2017-02-01] MEDS: ACETAMINOPHEN 325 MG TABLET (FP) PO SCH ×2 (00:40→06:30)
[2017-02-01 06:22] VITALS: PULSE 85
[2017-02-01] MEDS: LEVOTHYROXINE NA 50 MCG TABLET (FP) PO SCH (06:30)
[2017-02-01] MEDS: oxyCODONE HCL 5 MG TABLET PO PRN (09:30)
[2017-02-01] MEDS: DOCUSATE SODIUM 100 MG CAPSULE (FP) PO SCH (09:42)
[2017-02-01] MEDS: ENOXAPARIN NA (PORCINE) 40 MG/0.4 ML DISP.SYRIN SQ SCH (09:42)
[2017-02-01] MEDS: POLYETHYLENE GLYCOL 3350 119 GM BTL PO SCH (09:43)
[2017-02-01] MEDS: BACITRACIN 15 GM TUBE TOPICAL OINTMENT TP SCH (09:44)
--- NOTE | 2017-02-01 09:49 | PN ---
Progress Note (short form) - Note Progress Note: Ortho Pt seen and examined s/p left femur IM [place] pod #3 Selected Entries 02/01/17 06:00 Temperature 98.7 F Pulse Rate 85 Respiratory 20 Rate Blood Pressure 140/68 Laboratory Tests 01/31/17 06:45 WBC 11.9 H Hgb 9.7 L Hct 29.1 L Plt Count 130 L dressing c/d/i, + swelling, calf soft, nt nvi ankle xrays are neg a/p PT, PWb dvt ppx pain control d/c to rehab today f/u in the office in 10-14 days
[2017-02-01 11:27] VITALS: BP 134/70; TEMP 97.7
== END 2017-02-01 11:33 | DRG 482 ==
LOC: JER 11:34 → JERBED 14:55 → J6S 17:43
PROVIDERS: ADMIT Internal Medicine; ATTEND Internal Medicine
PROC: 0QSC06Z Reposition Left Lower Femur with Intramedullary Internal Fixation Device, Open Approach (ICD-10-PCS; principal; 2017-01-29 13:30)
DX: S72.342A Displaced spiral fracture of shaft of left femur, initial encounter for closed fracture (principal); E03.9 Hypothyroidism, unspecified; I65.29 Occlusion and stenosis of unspecified carotid artery; E78.5 Hyperlipidemia, unspecified; R01.1 Cardiac murmur, unspecified; W19.XXXA Unspecified fall, initial encounter; Y93.9 Activity, unspecified; Y92.488 Other paved roadways as the place of occurrence of the external cause; Y99.9 Unspecified external cause status
CPT/HCPCS: 36415; 71010-TC; 73502-TC-LT; 73552-TC-LT; 73610-TC-RT; 73630-TC-RT; 76000-TC; 80048; 80053; 85025; 85027; 86850; 86900; 86901; 93005; 93010; 93306-TC; 94010; 94760; 97116-GP; 97161-GP; 99284-25